=== PATIENT | male | born 1950 | race Caucasian/White ===

== ENCOUNTER → 2022-07-07 10:30 | Outpatient (CLI) | payer OTHER, SELFPAY ==
[2022-07-07 12:26] LABS: COVID19 -Nasal RAPID Negative (Negative)
== END ==
PROVIDERS: PCP Physician Assistant; Referring Provider Orthopaedic Surgery Orthopaedic Surgery of the Spine; Visit Provider Orthopaedic Surgery Orthopaedic Surgery of the Spine
DX: Z20.822 Contact with and (suspected) exposure to COVID-19 (principal)
CPT/HCPCS: 87635; C9803

== ENCOUNTER 2022-07-09 06:24 | Inpatient (IN) | payer OTHER, SELFPAY ==
[2022-06-29 13:50] VITALS: BMI 27.1
[2022-07-09] VITALS (18 sets, daily range): BP systolic 139–180; BP diastolic 77–106; PULSE 82–103; RESP 11–24; TEMP 35.8–36.7; O2SAT 92–98; BMI 27.1
--- NOTE | 2022-07-09 | DI.RAD.S_ITS ---
PROCEDURE: XR LUMBAR SPINE 2-3V INDICATIONS: TLIF L3-4, 4-5 TECHNIQUE: 2 views of the lumbar spine were acquired. COMPARISON: [facility], CT, CT LUMBAR SPINE WITHOUT CONTRAST, 05/24/2022, 16:18. FINDINGS: Bones: Intraoperative fluoroscopic spot images were obtained for lower lumbar posterior fusion hardware placement and interbody spacer placement. IMPRESSION: Intraoperative fluoroscopic spot images were obtained for lower lumbar fusion construct with interbody spacers. Please see operative note for full details. Dictated by: Santana Almaguer M.D. on 07/09/2022 at 11:58 Approved by: Santana Almaguer M.D. on 07/09/2022 at 11:59
[2022-07-09] MEDS: LACTATED RINGERS 1,000 ML 42 ML IV ×2 (06:49→10:41)
[2022-07-09] MEDS: ACETAMINOPHEN 325 MG TABLET 975 MG PO (07:07)
[2022-07-09] MEDS: PREGABALIN 75 MG CAPSULE PO (07:07)
--- NOTE | 2022-07-09 07:41 | PM.PREOP ---
Pre-operative Note COVID-19 COVID-19 status: Negative Result date/Date tested (Pos, Neg/Pending): 07/08/22 Criteria for continued procedure: Expected advancement of disease process, Possibility delay results in more complex future surgery or treatment, Increased loss of function, Continuing or worsening of significant or severe pain, Deterioration of the patient's condition or overall health and Delay expected to result in less-positive ultimate med/surg outcome Interval Note History & Physical reviewed/Exam performed by Physician: Yes Changes to H&P: No
[2022-07-09] MEDS: CEFAZOLIN 2 GM/100 ML PREMIX 100 ML IV ×3 (07:55→21:00)
--- NOTE | 2022-07-09 08:30 | SUR.OPER ---
Prone on spine table, head in foam head support, padded chest and pelvic supports, gel pad at knees, lower legs supported by pillows; nipples, genitalia and toes free of pressure, arms secured on foam padded arm boards at <90 degrees abduction. Tape over blanket at thigh secured to table. Between heels padded with gel.
[2022-07-09] MEDS: INSULIN LISPRO 100 UNIT/ML 3ML VIAL SUBCUT (09:33)
[2022-07-09] MEDS: BUPIVACAINE LIPOSOME 266 MG/20 ML VIAL INJ (11:40)
[2022-07-09] MEDS: BUPIVACAINE 0.25% (PF) 30 ML, EPINEPHrine 0.3 MG INJ (11:40)
--- NOTE | 2022-07-09 11:55 | PM.OP.1 ---
Operative Date/Time/Diagnoses Date of procedure: 07/09/22 Time of procedure: 07:40 Pre-op diagnosis: 1. L3-4, L4-5 spinal stenosis 2. L3-4, L4-5 spondylolisthesis Post-op diagnosis: same Procedure & Clinicians Procedure: 1. L3-4, L4-5 Postero-lateral and posterior interbody fusion 2. L3-4, L4-5 interbody cage placement. 3. L3-4, L4-5 decompressive laminectomy with bilateral facetecomies 4. L3-4, L4-5 Posterior segmental instrumentation 5. Harrison of bone marrow from iliac crest 6. Utilization of microsurgical technique and operating microscope 7. Utilization of robotic assisted navigation Same procedure as scheduled: Yes Indications: Patient has been having chronic back pain and worsening lumbar radiculopathy and symptoms of neurogenic claudication. Patient failed multiple conservative management with worsening pain weakness and numbness in his lower extremity. Patient has been having difficulty performing activity of daily living. After discussing risks benefits of treatment options, patient elected proceed with surgery. Surgeon: Lou Barajas Cake Press Operator: Lucero Forde Click Yes if Unassisted: No Anesthesia Type: General Operative Notes Closure Type: primary Specimen(s): none sent Prosthetic devices, grafts, tissues, transplants, or devices: Globus CREO MIS screws, Rise cages Applied: catheter Estimated Blood Loss (mL): 100 Blood products transfused: none Procedure in detail: Patient was seen in the preoperative area. Risks and benefits of the surgery was discussed with the patient. Informed consent was obtained from the patient and placed in the chart. Surgical site was marked. Patient was taken to the operative room. General anesthesia was administered. Prophylactic antibiotic was given to the patient less than 30 min before the incision was made. Patient was placed into a prone position on the Anselmo table. Patient's back was then prepped and draped in the sterile fashion. Time-out was performed at this time. After patient was prepped and draped, patient's PSIS was palpated and marked bilaterally. Small 1 cm incision was made over the PSIS for placement of the reference probes. Two trocar was placed into the PSIS 1 on each side. The reference probe was attached to the trocar of the reference apparatus. At this time the C-arm imaging was used to confirm AP and lateral of L3, L4-L5 vertebrae and merged the C-arm imaging using the Propers robotic navigation system with the CT of the lumbar spine. After successful merging was completed and confirmed, skin marker was used to gabby out the skin incision using the Propers robotic arm. Bilateral incision was made at this time. Pre templated trajectory was used and guided using the Propers robotic navigation system for bilateral L3 L4, L5 pedicle screw placement. This was done by using the robotic arm to guide the high-speed bur to make a cortical entry point. Next a drill was placed also using the robotic arm and guided using the navigation system drilling partially through bilateral L3, L4, L5 pedicles. Next L3, L4, L5 pedicle screws it was pre templated and measured was placed onto the power wagon driver salesperson and inserted into the pedicles bilaterally. After all 6 screws were placed C-arm imaging was taken of both AP and lateral to confirm the placement. Excellent placement of the screws were confirmed and a matched precisely with the pre planned screw placement using the navigation system. MARs retractor was inserted using [employer] guidence. Globus MARS retractors was placed inside the incision and docked onto the L3, L4 lamina. Using microsurgical technique and operating microscope, a L3, L4 laminectomy and L3-4, L4-5 facetectomy was performed using a Kerrison rongeur. Patient was found have severe lateral recess and neural foramen stenosis which was fully decompressed after the laminectomy facetectomy. More than 75% of the facets were removed during the process of decompression rendering L3-4, L4-5 level grossly unstable and required a fusion procedure at the same time. The disc space at L3-4, L4-5 was identified, and a total diskectomy was performed at L3-4, L4-5 level. The endplates were decorticated using a rasp and shaver. The total diskectomy and decortication was performed at L3-4, L4-5 level in order to to accomplish a L3-4, L4-5 fusion. The local bone from the laminectomy and facetectomy was saved for local bone grafting. After the total diskectomy and decortication was completed, Trifecta bone graft material was combined with local bone that was harvested earlier. At this time, a separate skin is incision was made over the iliac crest. A Jamshidi needle was inserted into the iliac crest through a separate skin incision. 5 cc of bone marrow aspiration was obtained through the separate skin incision using a Jamshidi needle from the iliac crest. The bone marrow aspiration was combined with local bone and the Trifecta bone grafting material. The bone grafting material was placed into the L3-4, L4-5 interbody space along with expandable cages. One cage each was inserted into the L3-4 L4-5 interbody space along with bone graft material. The cage was expanded to its maximum height using the torque limiting screwdriver. The disc preparation as well as the cage insertion were also performed under navigation guidance. After the cage was placed, AP and lateral C-arm imaging was taken to confirm placement of the cage and excellent position was confirmed. Globus MARS retractor was inserted and docked onto the L3-4, L4-5 posterolateral gutter on the right side. Using the power drill, posterior-lateral decortication was performed at L3-4, L4-5 level until bleeding cortical bone was identified. The remaining bone grafting material was placed into the L3-4, L4-5 posterior lateral gutter he order to accomplish posterolateral fusion at the L3-4, L4-5 level. At this time the tulips were attached to the L3, L4-L5 pedicle screw shanks. After measuring the length of the rods, they were inserted into the tulips of the pedicle screws and locked in place using locking caps and torque limiting screwdriver bilaterally. Total 6 caps and 2 titanium rods was used in order to complete the posterior instrumentation construct. After all the hardware was placed, and confirmed with AP and lateral C-arm imaging, the wound was then irrigated with sterile normal saline and packed with Ray-Denzel gauze for 3 min to accomplish hemostasis. After the gauze was removed the deep fascia was closed with #1 Vicryl suture. The subcutaneous layer was closed with 2-0 Vicryl. The skin was closed with skin abdifatah. Patient tolerated the procedure well. There were no complications. Neuro monitoring system was used to monitor patient's neurologic status throughout entire procedure. There was no disturbance of the neural monitoring signals throughout the case. Complications: none Post-operative Condition: stable Disposition: PACU Plan for aftercare: Admit to inpatient hospital
[2022-07-09] MEDS: HYDROMORPHONE 2 MG INJ IV ×4 (12:24→12:58)
[2022-07-09] MEDS: hydrOXYzine 50 MG/ML INJ 25 MG IM (12:26)
--- NOTE | 2022-07-09 12:43 | SUR.PHASEI ---
Marshall Rosenbaum CHAIR POST MACHINE OPERATOR notified of CBG, no new orders.
--- NOTE | 2022-07-09 13:23 | SUR.PHASEI ---
Report called to Erlinda.
--- NOTE | 2022-07-09 13:47 | SUR.PHASEI ---
Patient transferred to the floor with his belongings bag and insulin. Report given to Geeta. VS stable. IV saline locked. Patient moving all extremities independently. Back dressing CDI.
[2022-07-09] MEDS: SODIUM CHLORIDE 0.9% 1,000 ML 100 ML IV (14:30)
[2022-07-09] MEDS: OXYCODONE IR 5 MG TABLET 10 MG PO ×2 (14:30→19:30)
--- NOTE | 2022-07-09 15:30 | PT.IIE ---
Current Diagnoses Spondylolisthesis, lumbar region (07/09/22) Spinal stenosis, lumbar region with neurogenic claudication (07/09/22) Surgery Performed Operation Date: 07/09/22 07:45 Actual Procedures p L3-4, L4-5 TLIF w. posterior instrumentation-Robot - Lou Barajas MD Surgical History (Last Updated 06/29/22 @ 14:24 by Glory Sharif, RN) H/O vasectomy History of lumbar spinal fusion (~1975) History of lumbar surgery (~1981) History of surgery (~1984) Medical History (Last Updated 06/29/22 @ 14:15 by Glory Sharif, RN) Cyst of left kidney Diabetes Easy bruisability Fatty liver HLD (hyperlipidemia) HTN (hypertension) Sciatica Spinal stenosis Physical Therapy Inpatient Evaluation/Re-Eval M1 PT/OT-IP Prior Functional Status Start: 07/09/22 16:20 Freq: NEEDED Status: Active Protocol: Document 07/09/22 15:30 AB (Rec: 07/09/22 16:31 AB [email or web address]) Medical Review Prior Functional Status Medical History Reviewed Yes Communication able to make needs known Mobility and Gait pt stated that he is independent with all mobilities and ambulation without AD Social History Household Members spouse Living Arrangements House Number of Floors (Floors) One Floor Number of Stairs To Enter/Railing? 1 step to enter has a sunken living room and has one step to go down to Home Environment Standard Height Toilet,Walk in Shower Home Equipment Four Wheel Walker M2 PT-IP Current Condition Start: 07/09/22 16:20 Freq: NEEDED Status: Active Protocol: Document 07/09/22 15:30 AB (Rec: 07/09/22 16:31 AB [email or web address]) Physical Therapy Current Condition Current Condition Evaluation Date 07/09/22 Treatment Diagnosis s/p L3-4, L4-5 TLIF; difficulty in walking Onset Date 07/09/22 M3 PT-IP Subjective Start: 07/09/22 16:20 Freq: NEEDED Status: Active Protocol: Document 07/09/22 15:30 AB (Rec: 07/09/22 16:31 AB [email or web address]) Subjective Physical Therapy Visit Type Type Initial Evaluation Visit Start Time 15:30 Visit Stop Time 16:12 Total Visit Minutes 42 Number of CLINICAL MATERIAL HANDLER Visits 0 Physical Therapy Visit Comments Patient Comments agreeable to do PT Therapy Pain Assessment Pain When Pain Assessed At Rest Pain Present Pain Present Pain Reported Location low back Intensity 9 Scale Used Numeric (0 - 10) Pain Behaviors Facial Grimacing,Guarding, Moaning,Wincing Pain Management Techniques Distraction,Modification of Treatment,Re-positioning, Timing of Activity with Medications M4 PT-IP Mobility and Gait Start: 07/09/22 16:20 Freq: NEEDED Status: Active Protocol: Document 07/09/22 15:30 AB (Rec: 07/09/22 16:31 AB [id number]) PT-Bed Mobility Assessment Rolling Type of Rolling Log Rolling Level of Assist Minimal Assistance Supine to Sit Supine to Sit Minimal Assistance,Bedrails Sit to Supine Sit to Supine Moderate Assistance,1 Person Assistance PT-Transfer Assessment Sit to and From Stand Sit to and from Stand Minimal Assistance,Moderate Assistance,1 Person Assistance ,Use of Upper Extremities Equipment Transfer Assistive Device Gait Belt,Front Wheeled Walker Orthotic/Prosthetic Devices or Brace: No Comments Mobility Comments spouse in room with pt. educated pt and spouse regarding back precautions and log roll bed mobility. BP: 159/89. O2 sat at RA 98%. pt completed log roll supine to sit min A and cues. able to sit on EOB SBA. completed sit to stand min A to mod A and cues and use of FWW for support. c/o increase back pain of 9/10 with BLE shaking. instructed pt to take steps towards HOB min to mod A using FWW and sat back on EOB mod A for controlled descent. completed log roll back to bed mod A and max cues. positioned pt in bed. call light and table placed within reach. caregiver training set up for tomorrow with spouse at 930 am . Gait Assessment Gait Gait Assistance Required: Minimum Assistance,Moderate Assistance,1 Person Assist Distance (Feet) 2 Able to Maintain Weight Bearing Status Yes During Gait Assistive Devices Assistive Device Gait Belt,Front Wheeled Walker Orthotic/Prosthetic Devices or Brace: No Factors Limiting Gait Function Factors Limiting Gait Function Decreased Activity Tolerance, Decreased Strength,Limited Range of Motion,Pain,Poor Balance,Poor Safety Awareness Comments Gait Comments side stepping toward HOB PT-Balance Assessment Sitting Balance and Reactions Static Sitting Balance Ability Normal Dynamic Sitting Balance Ability Good Standing Balance and Reactions Static Standing Balance Ability Fair Dynamic Standing Balance Ability Fair Device Used FWW M5 PT-IP Objective Assessments Start: 07/09/22 16:20 Freq: NEEDED Status: Active Protocol: Document 07/09/22 15:30 AB (Rec: 07/09/22 16:31 [id number]) Orientation Orientation/Cognition Level of Alertness Alert Orientation Name,Place,Situation Language Function Ability No Deficits Noted Safety Awareness Decreased Safety Awareness Memory Description Short Term Impaired Gross Range of Motion Lower Extremity ROM Assessment Within Functional Limits Strength Lower Extremity Strength Assessment Within Functional Limits Sensation Assessment Sensation Gross Sensation Right LE Impaired,Left LE Impaired Sensation Description Numbness Comments Sensation Comments c/o numbness on ball of his feet and stated these are chronic Muscle Tone Muscle Tone WNL Yes M6 PT-IP Treatment Start: 07/09/22 16:20 Freq: NEEDED Status: Active Protocol: Document 07/09/22 15:30 AB (Rec: 07/09/22 16:31 [email or web address]) Physical Therapy Treatment Education Education Provided Precautions,Weight Bearing Status,Post-Op Packet,Safety M7 PT-IP Assessment and Plan Start: 07/09/22 16:20 Freq: NEEDED Status: Active Protocol: Document 07/09/22 15:30 AB (Rec: 07/09/22 16:31 AB [email or web address]) PT Summary Assessment and Plan Potential Rehabilitation Potential Fair Status of Condition at Evaluation Evolving Summary Impairments Pain,ROM,Strength,Balance, Coordination,Sensation,Tone, Cognition,Bed Mobility, Transfers,Gait,Activity Tolerance Assessment Summary pt s/p L3-4, L4-5 TLIF and just had surgery this morning. Pt has c/o 9/10 LBP affecting mobility and activity tolerance. pt needing min to mod A and unable to ambulate much. will continue to assess progress. caregiver training set up for tomorrow with spouse at 930am. pt needs to complete stair climbing training as well prior to d/c home. Goals Bed Mobility Goal Independent Transfer Goal Independent,Front Wheeled Walker Gait Goal Independent,Front Wheel Walker Gait Distance 200 Other Goals up/down 1 step using FWW SBA Days to Meet Goals 5 Frequency of Treatment Frequency Of Treatment Twice a Day Treatment Plan Physical Therapy Treatment Plan Bed Mobility Training,Transfer Training,Gait Training, Therapeutic Exercise,Balance Retraining,Post Op Education, Discharge Planning,Hot or Cold Pack,Neuromuscular Re-ed, Coordination Retraining,Manual Therapy Precautions Lumbar Precautions Log Roll,No Twisting,Limit Bending,Lifting Restriction of 10 lbs,Gait Belt above Incisional Area Recommendations To Nursing Amount of Assist Needed 1 Person Assist Discharge Recommendations PT Discharge Recommendations Home with Assistance Equipment Needed for Home Before FWW Discharge Transportation Needs at Discharge Private Vehicle,Wheelchair/ Cabulance
[2022-07-09] MEDS: HYDROMORPHONE 0.5 MG INJ IV ×3 (17:21→21:46)
--- NOTE | 2022-07-09 18:49 | PC.NURSE ---
Patient had a tlif and dressing to lower back is cdi. He has a shine that is putting out yellow urine. He is on NS at 100cc/hr. Patient given 10mg of po oxycodone and this was not helpful to patient. He got up wit pt, also tried to have a bowel movement and went back to bed. Patient complained of 10/10 pain and was given dilaudid 0.5mg iv and this was helpful to patient, he did get nauseated but this has resolved after cool cloth placed on face.
[2022-07-09] MEDS: ONDANSETRON 4 MG/2 ML INJ IV (19:29)
[2022-07-09] MEDS: SENNOSIDES 8.6 MG TABLET 17.2 MG PO (20:58)
[2022-07-09] MEDS: DOCUSATE 100 MG CAPSULE PO (20:58)
[2022-07-10] VITALS: BP 151/94; PULSE 94; RESP 18; TEMP 37.6; O2SAT 94
[2022-07-10] MEDS: HYDROCODONE/ACET 5/325 TABLET 1.5 TAB PO (00:20)
[2022-07-10] MEDS: hydrOXYzine pamoate 25 MG CAPSULE PO (00:20)
[2022-07-10] MEDS: HYDROMORPHONE 0.5 MG INJ IV ×3 (02:08→12:36)
[2022-07-10] MEDS: SODIUM CHLORIDE 0.9% 1,000 ML 100 ML IV (02:10)
[2022-07-10] MEDS: OXYCODONE IR 5 MG TABLET 10 MG PO ×3 (05:53→21:26)
[2022-07-10 06:39] LABS: Hematocrit 41.4 % (41-53); Hemoglobin 14.7 g/dL (13.5-17.5)
[2022-07-10 08:34] VITALS: BP 152/77; PULSE 86; RESP 18; TEMP 36.6; O2SAT 97
--- NOTE | 2022-07-10 08:46 | PM.PNPO.1 ---
Subjective Subjective Date Patient Seen: 07/10/22 Time Patient Seen: 08:46 Interval history: Patient is complaining of moderate to severe low back pain this morning. He is not worked with physical therapy or occupational therapy yet. He denies any new numbness or tingling down his legs. Exam Vital Signs (past 8 hours): - 07/10/22 08:34 Temperature 97.8 F Pulse Rate 86 Respiratory Rate 18 Blood Pressure 152/77 H Pulse Oximetry 97 Oxygen Flow Rate 0 Oxygen Delivery Method Room Air Oxygen Flow Rate 0 Narrative Exam Narrative: Pleasant 71-year-old male, sitting at the side of his bed, mild distress due to pain and position changes. Dressing is clean, dry, intact, no surrounding erythema or induration. Bilateral lower extremity: Motor functions are grossly intact, sensation is grossly intact to light touch, calves are soft and nontender to palpation. Objective Labs Result Diagrams: 07/10/22 05:44 Labs: Laboratory Results - last 24 hr 07/10/22 05:44 Hgb 14.7 Hct 41.4 PFSH Medical History Cyst of left kidney Diabetes Easy bruisability Fatty liver HLD (hyperlipidemia) HTN (hypertension) Sciatica Spinal stenosis Surgical History H/O vasectomy History of lumbar spinal fusion (~1975) History of lumbar surgery (~1981) History of surgery (~1984) Social History household members: spouse Smoking Status: Former smoker alcohol intake: current Assessment & Plan Post-op Postoperative Procedures: Procedures Operation Date: 07/09/22 07:45 Actual Procedure Side Surgeon p L3-4, L4-5 TLIF w. posterior instrumentation-Robot Lou Barajas MD Postoperative day: 1 Postoperative status: marginal pain control Postoperative status narrative: -stable status post L3-4, L4-5 TLIF Postoperative plan narrative: -mobilize with PT/OT. Weightbearing as tolerated with front wheel walker or cane. Limit bending, lifting, twisting x6 weeks -continue with multimodal pain management. We will change him to p.o. Dilaudid for better pain control. Encouraged around the clock Tylenol for baseline pain relief -remove urinary catheter once mobilizing well -DC home likely in 1-2 days Quality VTE Deep Vein Thrombosis/Pulmonary Embolism Present on Admission: No
[2022-07-10] MEDS: HYDROMORPHONE 2 MG TABLET PO ×3 (09:26→19:45)
[2022-07-10] MEDS: DOCUSATE 100 MG CAPSULE PO ×2 (09:27→19:45)
[2022-07-10] MEDS: CHOLECALCIFEROL (VITAMIN D3) 5,000 UNIT TABLET 5000 UNIT PO (09:27)
[2022-07-10 09:28] VITALS: BP 147/89; PULSE 89
[2022-07-10] MEDS: hydroCHLOROthiazide 25 MG TABLET PO (09:28)
[2022-07-10] MEDS: lisinopriL 20 MG TABLET 40 MG PO (09:28)
[2022-07-10] MEDS: MAGNESIUM OXIDE 400 MG TABLET PO (09:28)
[2022-07-10] MEDS: EZETIMIBE 10 MG TABLET PO (09:40)
[2022-07-10] MEDS: ASCORBIC ACID 500 MG TABLET PO (09:41)
--- NOTE | 2022-07-10 10:33 | PT.IPTN ---
Current Diagnoses Spondylolisthesis, lumbar region (07/09/22) Spinal stenosis, lumbar region with neurogenic claudication (07/09/22) Surgery Performed Operation Date: 07/09/22 07:45 Actual Procedures p L3-4, L4-5 TLIF w. posterior instrumentation-Robot - Lou Barajas MD Physical Therapy Treatment Note M2 PT-IP Current Condition Start: 07/09/22 16:20 Freq: NEEDED Status: Active Protocol: Document 07/09/22 15:30 AB (Rec: 07/09/22 16:31 AB [email or web address]) Physical Therapy Current Condition Current Condition Evaluation Date 07/09/22 Treatment Diagnosis s/p L3-4, L4-5 TLIF; difficulty in walking Onset Date 07/09/22 M3 PT-IP Subjective Start: 07/09/22 16:20 Freq: NEEDED Status: Active Protocol: Document 07/10/22 10:33 AB (Rec: 07/10/22 12:07 AB [email or web address]) Subjective Physical Therapy Visit Type Type Treatment Note Visit Start Time 10:33 Visit Stop Time 11:01 Total Visit Minutes 28 Number of SERVICE AGENT Visits 0 Physical Therapy Visit Comments Patient Comments checked on pt 9am for caregiver training but c/o 9/ 10 pain and requested for PT to come back. checked back after ~ 1 hour and pt agreed. spouse in room. Therapy Pain Assessment Pain When Pain Assessed At Rest Pain Present Pain Present Pain Reported Location low back Intensity 8 Scale Used Numeric (0 - 10) Pain Behaviors Facial Grimacing,Guarding, Wincing Pain Management Techniques Apply Cold,Distraction, Modification of Treatment,Re- positioning,Timing of Activity with Medications M4 PT-IP Mobility and Gait Start: 07/09/22 16:20 Freq: NEEDED Status: Active Protocol: Document 07/10/22 10:33 AB (Rec: 07/10/22 12:07 AB [email or web address]) PT-Bed Mobility Assessment Rolling Type of Rolling Log Rolling Level of Assist Standby Assistance Supine to Sit Supine to Sit Standby Assistance Sit to Supine Sit to Supine Standby Assistance PT-Transfer Assessment Sit to and From Stand Sit to and from Stand Minimal Assistance,1 Person Assistance,Use of Upper Extremities Equipment Transfer Assistive Device Gait Belt Orthotic/Prosthetic Devices or Brace: No Transfers Transfer Destination Chair Transfer Technique ambulated Transfer Ability Level of Assist Contact Guard Assistance, Minimal Assistance,1 Person Assistance,Use of Upper Extremities Comments Mobility Comments reviewed back precautions with pt and pt requiring cues to recall. c/o 8/10 LBP. spouse in room for training. pt completed supine to sit log roll SBA. presnts with difficulty completing task with 2 attempts to complete. pt sat on EOB SBA. educated spouse on safety belt use and how to assist pt. spouse was able to put safety belt on pt, assisted pt with sit to stand and ambulated pt in room using FWW. pt sat on the chair but requested to go back to bed. completed sit to stand with spouse assisting min A and step transfer to bed CGA to min A using FWW. pt completed sit to supine SBA. positioned pt in bed. call light and table placed within reach. Gait Assessment Gait Gait Assistance Required: Contact Guard Assist,Minimum Assistance Distance (Feet) 40 Able to Maintain Weight Bearing Status Yes During Gait Assistive Devices Assistive Device Gait Belt,Front Wheeled Walker Orthotic/Prosthetic Devices or Brace: No Gait Deviations General Gait Pattern Antalgic,Decreased Stride Length,Decreased Feet Clearance,Step-to Gait Factors Limiting Gait Function Factors Limiting Gait Function Decreased Activity Tolerance, Decreased Strength,Limited Range of Motion,Pain,Poor Balance,Poor Safety Awareness M5 PT-IP Objective Assessments Start: 07/09/22 16:20 Freq: NEEDED Status: Active Protocol: Document 07/09/22 15:30 AB (Rec: 07/09/22 16:31 AB [email or web address]) Orientation Orientation/Cognition Level of Alertness Alert Orientation Name,Place,Situation Language Function Ability No Deficits Noted Safety Awareness Decreased Safety Awareness Memory Description Short Term Impaired Gross Range of Motion Lower Extremity ROM Assessment Within Functional Limits Strength Lower Extremity Strength Assessment Within Functional Limits Sensation Assessment Sensation Gross Sensation Right LE Impaired,Left LE Impaired Sensation Description Numbness Comments Sensation Comments c/o numbness on ball of his feet and stated these are chronic Muscle Tone Muscle Tone WNL Yes M6 PT-IP Treatment Start: 07/09/22 16:20 Freq: NEEDED Status: Active Protocol: Document 07/10/22 10:33 AB (Rec: 07/10/22 12:07 AB [email or web address]) Physical Therapy Treatment Education Education Provided Precautions,Safety M7 PT-IP Assessment and Plan Start: 07/09/22 16:20 Freq: NEEDED Status: Active Protocol: Document 07/10/22 10:33 AB (Rec: 07/10/22 12:07 [id number]) PT Summary Assessment and Plan Potential Rehabilitation Potential Fair Summary Impairments Pain,ROM,Strength,Balance, Coordination,Sensation,Tone, Cognition,Bed Mobility, Transfers,Gait,Activity Tolerance Progress Towards Goals Slow Progress due to Pain Assessment Summary pt requiring CGA to min A with mobility using FWW. pt c/o increase LBP affecting function and activity tolerance. caregiver training initiated but further training needed for stair climbing. will attempt again this afternoon. pt plans to go home and spouse will assist pt at home. Goals Bed Mobility Goal Independent Transfer Goal Independent,Front Wheeled Walker Gait Goal Independent,Front Wheel Walker Gait Distance 200 Other Goals up/down 1 step using FWW SBA Days to Meet Goals 5 Frequency of Treatment Frequency Of Treatment Twice a Day Treatment Plan Physical Therapy Treatment Plan Bed Mobility Training,Transfer Training,Gait Training, Therapeutic Exercise,Balance Retraining,Post Op Education, Discharge Planning,Hot or Cold Pack,Neuromuscular Re-ed, Coordination Retraining,Manual Therapy Precautions Lumbar Precautions Log Roll,No Twisting,Limit Bending,Lifting Restriction of 10 lbs,Gait Belt above Incisional Area Recommendations To Nursing Amount of Assist Needed 1 Person Assist Discharge Recommendations PT Discharge Recommendations Home with Assistance Equipment Needed for Home Before FWW Discharge Transportation Needs at Discharge Private Vehicle,Wheelchair/ Cabulance
--- NOTE | 2022-07-10 11:25 | PC.NURSE ---
Addendum entered by Brian Lugo 07/10/22 18:41: *post-op day 1 Original Note: Pt is post-op day 2 from a TLIF. BP remains elevated. BG was 167 @ 0823. Pt stated px located in his lower back was at a 10/10. After oral dilaudid, px went down to an 8/10. Alternating cold and hot compress for additional comfort measures. Significant other in the room, pt resting comfortably.
[2022-07-10 12:00] VITALS: BP 138/74; PULSE 94; RESP 18; TEMP 36.6; O2SAT 92
--- NOTE | 2022-07-10 14:15 | CM.DANOTE ---
Initial Discharge Assessment Note: Case reviewed, met with patient and spouse. Introduced self and role. Payer: [facility] and self pay PCP: Noemi Magallanes 71 year old admitted yesterday for planned TFLIF. He is experiencing moderate to severe pain and was medicated. He has worked with PT earlier. He is now resting in bed with in room. Patient and supportive spouse live in [place] and enjoy their horses and property. Their son lives close by and is an EMT. Plan: When medically cleared, patient will return home with spouse who will provide transport. SEJ Discharge Planning/Care Management Advanced directive, confirm from FAMILY Start: 07/09/22 16:28 Freq: Q24H Status: Active Protocol: Document 07/09/22 16:28 (Rec: 07/09/22 21:57 [id number]) Advance Directive, confirm on record Time 21:00 Person contacted patient Copy received No CM Discharge Assessment Start: 07/10/22 14:13 Freq: Status: Active Protocol: Document 07/10/22 14:14 (Rec: 07/10/22 14:15 [id number]) Discharge Planning Assessment Assigned Rating Specialist Rocio Shaffer RN/DCP Advance Directives? Yes Advance Directives on File Yes History Provided By Patient,Significant Other Prior Living Arrangements House Household Members spouse Type of transporation used prior to Drives own vehicle admit Independent with ADL's Yes Is patient alert and oriented? Yes Needs Assistance With Home Chores / Shopping Caregiver for Another No Barriers to Discharge No Discharge Plan Home Referrals Initiated None needed Whiteboard Updated in Patient Room with Yes name and ext. # of Rating Specialist Review Status In Process Next Review Type Continued Stay Review Pre-Anesthesia Assessment Start: 06/29/22 13:49 Freq: Status: Active Protocol: Document 06/29/22 13:50 CAB (Rec: 06/29/22 14:33 CAB [id number]) Pre-Anesthesia Assessment Preferred Name Don Comment COVID screen @ 07/07/22 Primary Care Provider Noemi Magallanes Seen Specialist in Last 12 Months Yes Specialist Seen Orthopedist Primary Language Wolof [employer] Required No Height 175.26 cm Weight 83.461 kg Body Mass Index (BMI) 27.1 Hearing Ability Normal Visual Assist Glasses Dentition Type Teeth, Natural Present,Teeth, Missing Barriers to Learning None Hx Anesthesia Reactions No Hx Family Anesthesia Reaction No Hx Malignant Hyperthermia No Hx Blood Transfusions Yes Hx Blood Transfusion Reaction No Anesthesia Review Requested Yes: PAC courtesy re: abnormal pre-op ECG alcohol intake current alcohol intake frequency 0-2 drinks per day Smoking Status Former smoker how long ago did patient quit smoking Quit in the 70's Substance Use Type marijuana Comment Advised not to smoke marijuana 24 hours prior to surgery Pain Present Pain Reported Musculoskeletal Symptoms Abnormal Gait,Back Pain, Difficulty Walking,Joint Pain History of Falling (Recent or History of No ) Patient is completely paralyzed or No completely immobile Mental Status Oriented to own ability Is patient on oxygen? No Does patient have DEY/SOB No Hx Sleep Apnea No Currently Taking a Beta Tara No Hx Chest Pain No Hx SOB No Hx Syncope or Dizziness No Anti-Coagulant Therapy No Has a Gis Specialist No Cardiac Testing No Hx Pacemaker/ICD No Pacemaker Rep Required? No Cardiac Clearance Received Not Applicable Diet Type At Home Regular dysphagia No Urinary Catheter Present No Hx Urinary Self Catheterization No Diabetes Yes: Pt checks blood sugar 3- 4x/week Hx Drug Resistant Organism No Presence of External or Internal Medical No Devices Have you had any close contact with No someone diagnosed with COVID-19? Received a COVID vaccine? Yes Received all doses? No Marital Status Lives With spouse Prior Living Arrangements House Number of Floors (Floors) One Floor Support System Spouse Does the Patient Have Assistance After Yes Surgery Patient Discharge Plan Description Return Home Comment Pt advised overnight length of stay per surgeon Feels Safe in Current Environment Yes Been Physically Hurt or Threatened By a No Person in Current Environment Do you have thoughts of harming yourself None or others? Are you currently considering suicide? No Do you have a plan to hurt yourself or No Plan others? Do You Have Any Spiritual Beliefs That No May Affect Your HC Choices? Do You Have Any Cultural Practices That No May Affect Your HC Choices? Comment Jew Who Can We Speak to About Patient's Care Family, friends Identifying Code for Release of Patient Declines to issue Information Health Care Proxy/Next of Kin Shawna () Health Care Proxy Emergency Contact Name Shawna () Emergency Contact Advance Directives? Yes Advance Directives on File No Requested Patient Bring Advanced Yes Directives DOS Power of Clinical Orthoptist Yes Power of Clinical Orthoptist Name Shawna () Julio Cesar (son) Power of Clinical Orthoptist Phone Number Shawna: [phone] Julio Cesar: [phone] PAC Instructions Diabetes instructions,Durable medical equipment,Medications to take/avoid,Nasal antibiotic ,No ETOH/petroleum product on skin DOS,NPO,Post-op transportation,Pre-surgical wash,Sensory aids,Sturdy shoes /comfortable clothes,Do not bring valuables and remove jewelry
--- NOTE | 2022-07-10 14:16 | PT.IPTN ---
Current Diagnoses Spondylolisthesis, lumbar region (07/09/22) Spinal stenosis, lumbar region with neurogenic claudication (07/09/22) Surgery Performed Operation Date: 07/09/22 07:45 Actual Procedures p L3-4, L4-5 TLIF w. posterior instrumentation-Robot - Lou Barajas MD Physical Therapy Treatment Note M2 PT-IP Current Condition Start: 07/09/22 16:20 Freq: NEEDED Status: Active Protocol: Document 07/09/22 15:30 AB (Rec: 07/09/22 16:31 AB [email or web address]) Physical Therapy Current Condition Current Condition Evaluation Date 07/09/22 Treatment Diagnosis s/p L3-4, L4-5 TLIF; difficulty in walking Onset Date 07/09/22 M3 PT-IP Subjective Start: 07/09/22 16:20 Freq: NEEDED Status: Active Protocol: Document 07/10/22 14:16 AB (Rec: 07/10/22 14:50 AB [email or web address]) Subjective Physical Therapy Visit Type Type Treatment Note Visit Start Time 14:16 Visit Stop Time 14:40 Total Visit Minutes 24 Number of COMPLIANCE REVIEW SPECIALIST Visits 0 Physical Therapy Visit Comments Patient Comments initially refusing but then agreed M4 PT-IP Mobility and Gait Start: 07/09/22 16:20 Freq: NEEDED Status: Active Protocol: Document 07/10/22 14:16 AB (Rec: 07/10/22 14:50 AB [email or web address]) PT-Bed Mobility Assessment Supine to Sit Supine to Sit Standby Assistance PT-Transfer Assessment Sit to and From Stand Sit to and from Stand Contact Guard Assistance,1 Person Assistance,Use of Upper Extremities Equipment Transfer Assistive Device Gait Belt,Front Wheeled Walker Orthotic/Prosthetic Devices or Brace: No Comments Mobility Comments pt completed supine to sit SBA . spouse was able to put safety belt on and assisted pt with sit to stand and ambulation using FWW CGA. pt ambulated to the platform steps using FWW CGA. PT initially cued pt and spouse on how to complete but completed another set and able to complete without PT cueing . pt has a 4WW at home. ambulated using 4WW CGA with spouse assisting. completed up /down platform step again and instructed on how to maneuver 4WW up platform step and instructed spouse on how to complete. pt completed CGA and assist with 4WW. pt ambulated back to his room and sat on EOB. wanted to sit on EOB for how. left with spouse and call light within reach. Gait Assessment Gait Gait Assistance Required: Contact Guard Assist,1 Person Assist Distance (Feet) 20 Able to Maintain Weight Bearing Status Yes During Gait Assistive Devices Assistive Device Gait Belt,Front Wheeled Walker ,4 Wheeled Walker Orthotic/Prosthetic Devices or Brace: Yes Gait Deviations General Gait Pattern Decreased Stride Length, Decreased Feet Clearance Factors Limiting Gait Function Factors Limiting Gait Function Decreased Activity Tolerance, Decreased Strength,Limited Range of Motion,Pain,Poor Balance,Poor Safety Awareness Stair Climbing Assessment Evaluation Level of Assist On Stairs Contact Guard Assistance,1 Person Assistance Devices Stair Climbing Assistive Devices Front Wheel Walker,Four Wheel Walker Technique/Endurance Stair Climbing Direction Ascend and Descend Stair Climbing Technique Step to Step Number of Steps Climbed 1 Comments Stair Climbing Comments 3 M5 PT-IP Objective Assessments Start: 07/09/22 16:20 Freq: NEEDED Status: Active Protocol: Document 07/09/22 15:30 AB (Rec: 07/09/22 16:31 [facility] Orientation Orientation/Cognition Level of Alertness Alert Orientation Name,Place,Situation Language Function Ability No Deficits Noted Safety Awareness Decreased Safety Awareness Memory Description Short Term Impaired Gross Range of Motion Lower Extremity ROM Assessment Within Functional Limits Strength Lower Extremity Strength Assessment Within Functional Limits Sensation Assessment Sensation Gross Sensation Right LE Impaired,Left LE Impaired Sensation Description Numbness Comments Sensation Comments c/o numbness on ball of his feet and stated these are chronic Muscle Tone Muscle Tone WNL Yes M6 PT-IP Treatment Start: 07/09/22 16:20 Freq: NEEDED Status: Active Protocol: Document 07/10/22 14:16 AB (Rec: 07/10/22 14:50 AB [email or web address]) Physical Therapy Treatment Education Education Provided Precautions,Safety M7 PT-IP Assessment and Plan Start: 07/09/22 16:20 Freq: NEEDED Status: Active Protocol: Document 07/10/22 14:16 AB (Rec: 07/10/22 14:50 AB [email or web address]) PT Summary Assessment and Plan Potential Rehabilitation Potential Fair Summary Impairments Pain,ROM,Strength,Balance, Coordination,Sensation,Tone, Cognition,Bed Mobility, Transfers,Gait,Activity Tolerance Progress Towards Goals Slow Progress due to Pain Assessment Summary caregiver training conducted again and spouse was able to assist pt safely. pt plans to go home and spouse to assist. Goals Bed Mobility Goal Independent Transfer Goal Independent,Front Wheeled Walker Gait Goal Independent,Front Wheel Walker Gait Distance 200 Other Goals up/down 1 step using FWW SBA Days to Meet Goals 5 Frequency of Treatment Frequency Of Treatment Twice a Day Treatment Plan Physical Therapy Treatment Plan Bed Mobility Training,Transfer Training,Gait Training, Therapeutic Exercise,Balance Retraining,Post Op Education, Discharge Planning,Hot or Cold Pack,Neuromuscular Re-ed, Coordination Retraining,Manual Therapy Precautions Lumbar Precautions Log Roll,No Twisting,Limit Bending,Lifting Restriction of 10 lbs,Gait Belt above Incisional Area Recommendations To Nursing Amount of Assist Needed 1 Person Assist Discharge Recommendations PT Discharge Recommendations Home with Assistance Transportation Needs at Discharge Private Vehicle,Wheelchair/ Cabulance
--- NOTE | 2022-07-10 18:58 | PC.NURSE ---
Assess- 0900- Patient is alert and oriented x4, he has been working with physical therapy. Dilaudid po given to patient and not helpful. We started him back on oxycodone and he states that this may work a bit better. Patient given iv dilaudid and helpful to patient but only for about an hour. He states that it is helpful and he sleeps. Alonso taken out around 1700, and patient voided 350cc in the urinal. Dressing to back remains cdi. Patient is lying on his l.side.
[2022-07-10] MEDS: SENNOSIDES 8.6 MG TABLET 17.2 MG PO (19:45)
[2022-07-10 21:22] VITALS: BP 134/69; PULSE 93; RESP 18; TEMP 36.6; O2SAT 93
[2022-07-11] MEDS: HYDROMORPHONE 2 MG TABLET PO ×3 (00:27→08:09)
[2022-07-11] MEDS: HYDROMORPHONE 0.5 MG INJ IV ×2 (01:18→06:38)
[2022-07-11 04:19] VITALS: BP 128/75; PULSE 84; RESP 16; TEMP 37.3; O2SAT 94
[2022-07-11 07:53] VITALS: BP 128/70; PULSE 94; RESP 16; TEMP 36.4; O2SAT 96
[2022-07-11] MEDS: DOCUSATE 100 MG CAPSULE PO (08:09)
[2022-07-11] MEDS: EZETIMIBE 10 MG TABLET PO (08:09)
[2022-07-11] MEDS: CHOLECALCIFEROL (VITAMIN D3) 5,000 UNIT TABLET 5000 UNIT PO (08:09)
[2022-07-11] MEDS: MAGNESIUM OXIDE 400 MG TABLET PO (08:09)
[2022-07-11] MEDS: lisinopriL 20 MG TABLET 40 MG PO (08:09)
[2022-07-11] MEDS: hydroCHLOROthiazide 25 MG TABLET PO (08:09)
[2022-07-11] MEDS: ASCORBIC ACID 500 MG TABLET PO (08:10)
--- NOTE | 2022-07-11 09:08 | PT.IPTN ---
Current Diagnoses Spondylolisthesis, lumbar region (07/09/22) Spinal stenosis, lumbar region with neurogenic claudication (07/09/22) Surgery Performed Operation Date: 07/09/22 07:45 Actual Procedures p L3-4, L4-5 TLIF w. posterior instrumentation-Robot - Lou Barajas MD Physical Therapy Treatment Note M2 PT-IP Current Condition Start: 07/09/22 16:20 Freq: NEEDED Status: Active Protocol: Document 07/09/22 15:30 AB (Rec: 07/09/22 16:31 AB [id number]) Physical Therapy Current Condition Current Condition Evaluation Date 07/09/22 Treatment Diagnosis s/p L3-4, L4-5 TLIF; difficulty in walking Onset Date 07/09/22 M3 PT-IP Subjective Start: 07/09/22 16:20 Freq: NEEDED Status: Active Protocol: Document 07/11/22 09:01 BC (Rec: 07/11/22 09:08 BC [id number]) Subjective Physical Therapy Visit Type Type Treatment Note Visit Start Time 08:35 Visit Stop Time 09:00 Total Visit Minutes 25 Physical Therapy Visit Comments Patient Comments Pt states he feels better walking vs sitting. He has a few questions regarding mobility at discharge. He reports readiness to discharge home. Therapy Pain Assessment Pain When Pain Assessed After Treatment Pain Present Pain Present Pain Reported Location low back Intensity 9 Scale Used Numeric (0 - 10) Pain Management Techniques Re-positioning,Timing of Activity with Medications M4 PT-IP Mobility and Gait Start: 07/09/22 16:20 Freq: NEEDED Status: Active Protocol: Document 07/11/22 09:01 BC (Rec: 07/11/22 09:08 [id number]) PT-Transfer Assessment Sit to and From Stand Sit to and from Stand Independent Equipment Transfer Assistive Device Gait Belt,Front Wheeled Walker Transfers Transfer Destination Chair Transfer Technique Stand Pivot Transfer Ability Level of Assist Independent Comments Mobility Comments Transfers from recliner with FWW and modif Ind. No physical support, good technique. Gait Assessment Gait Gait Assistance Required: Independent Distance (Feet) 200 Assistive Devices Assistive Device Gait Belt,Front Wheeled Walker Gait Deviations General Gait Pattern Decreased Stride Length Factors Limiting Gait Function Factors Limiting Gait Function Limited Range of Motion,Pain Comments Gait Comments Pt reporting walking feels good. Able to ambulate with equal but short stride length 200' without LOB or need of physical intervention from PT. Stair Climbing Assessment Comments Stair Climbing Comments Pt declined need to revisit stair training at this time. He reviewed stairs with PT and yesterday with CGA. PT-Balance Assessment Sitting Balance and Reactions Static Sitting Balance Ability Normal Dynamic Sitting Balance Ability Normal Standing Balance and Reactions Static Standing Balance Ability Good Dynamic Standing Balance Ability Good Device Used FWW M5 PT-IP Objective Assessments Start: 07/09/22 16:20 Freq: NEEDED Status: Active Protocol: Document 07/09/22 15:30 AB (Rec: 07/09/22 16:31 AB [email or web address]) Orientation Orientation/Cognition Level of Alertness Alert Orientation Name,Place,Situation Language Function Ability No Deficits Noted Safety Awareness Decreased Safety Awareness Memory Description Short Term Impaired Gross Range of Motion Lower Extremity ROM Assessment Within Functional Limits Strength Lower Extremity Strength Assessment Within Functional Limits Sensation Assessment Sensation Gross Sensation Right LE Impaired,Left LE Impaired Sensation Description Numbness Comments Sensation Comments c/o numbness on ball of his feet and stated these are chronic Muscle Tone Muscle Tone WNL Yes M6 PT-IP Treatment Start: 07/09/22 16:20 Freq: NEEDED Status: Active Protocol: Document 07/11/22 09:01 (Rec: 07/11/22 09:08 [id number]) Physical Therapy Treatment Education Education Provided Precautions,Safety Other Treatments Other Treatment Performed Answered Pt questions regarding activity at home. Education on spinal precautions and increased risk at home as pain improves. Pt verbalizes he has been through 3 spinal surgeries and understands the benefit of following spinal precautions. He will ambulate at home with walker for exercise. We discussed grading ambulation distance and slowly increasing as he tolerates. Reviewed verbally log roll technique. M7 PT-IP Assessment and Plan Start: 07/09/22 16:20 Freq: NEEDED Status: Active Protocol: Document 07/11/22 09:01 (Rec: 07/11/22 09:08 [id number]) PT Summary Assessment and Plan Potential Rehabilitation Potential Excellent Summary Progress Towards Goals Progressing Toward Goals,Safe For Discharge Assessment Summary Pt agreeable to PT. Reviewed any final questions he has for PT at this juncture. Pt anticipating discharge home today with spouse assist. His goal today was to ambulate further. He was able to ambulate ~200' without physical support of PT. His pain had increased in seated position immediately after ambulating but subsided with rest. Pain medications were provided ~30 min prior to PT per nsng. At this time, Pt is meeting criteria for d/c home with assist. Goals Bed Mobility Goal Independent Transfer Goal Independent,Front Wheeled Walker Gait Goal Independent,Front Wheel Walker Gait Distance 200 Other Goals up/down 1 step using FWW SBA Days to Meet Goals 5 Frequency of Treatment Frequency Of Treatment Twice a Day Treatment Plan Physical Therapy Treatment Plan Bed Mobility Training,Transfer Training,Gait Training, Therapeutic Exercise,Balance Retraining,Post Op Education, Discharge Planning,Hot or Cold Pack,Neuromuscular Re-ed, Coordination Retraining,Manual Therapy Other Recommendations and Next Treatment PT to revisit Pt this PM if he Focus has not discharged to review any final needs that may arise . Precautions Lumbar Precautions Log Roll,No Twisting,Limit Bending,Lifting Restriction of 10 lbs,Gait Belt above Incisional Area Recommendations To Nursing Amount of Assist Needed Independent Discharge Recommendations PT Discharge Recommendations Home with Assistance Equipment Needed for Home Before FWW Discharge Transportation Needs at Discharge Private Vehicle,Wheelchair/ Cabulance
--- NOTE | 2022-07-11 09:33 | PM.DS.1 ---
History of Present Illness History of Present Illness Date Patient Seen: 07/11/22 Time Patient Seen: 09:34 Chief complaint: TLIF Narrative: Postop L3-4 L4-[address] Barajas . Improved pain control today. Has been getting [place], oxycodone and Dilaudid. Dilaudid seems to help the most. Feeling better sitting up at the bedside table. Feels ready to go home today. Ambulated with therapy. And voided. Discharge Providers Provider Date of admission: 07/09/22 06:24 Discharge Date: 07/11/22 Primary care physician: Noemi Magallanes PA-C Consults: 07/09/22 13:45 Consult to Occupational Therapy Evaluate & Treat Comment: Physician Instructions: Evaluate and treat Consult to Physical Therapy Evaluate & Treat Comment: Physician Instructions: Evaluate and Treat Discharge provider: Sara Guajardo MD Summary Hospital Course Discharge Diagnosis: Spondylolisthesis, spondylosis lumbar Hospital Course: Patient was admitted to the acute care unit after surgery. He was managed on IV and p.o. pain medication. He worked with physical therapy. Initially had persistent pain. Pain medications were modified and on date of discharge. Patient's pain was controlled with p.o. medications and he was ambulating and tolerating a p.o. diet. Status at Discharge Cognitive/behavioral status at discharge: oriented Functional status at discharge: uses cane/walker Overall status at discharge: patient is progressing back to baseline Time Spent with Patient Time spent: Less than 30 minutes Exam Vital Signs (past 8 hours): - 07/11/22 04:19 07/11/22 07:53 07/11/22 08:09 Temperature 99.2 F 97.5 F L Pulse Rate 84 94 H Respiratory Rate 16 16 Blood Pressure 128/75 128/70 Pulse Oximetry 94 96 Oxygen Delivery Method Room Air Oxygen Flow Rate 0 Oxygen Delivery Method Room Air Oxygen Flow Rate 0 Narrative Exam Narrative: Alert oriented male in no acute distress. Respiratory unlabored on room air Low back exam dressing clean dry and intact. Demonstrates dorsiflexion plantar flexion bilateral lower extremities. Brisk capillary refill Objective Labs Result Diagrams: 07/10/22 05:44 [facility] Medical History Cyst of left kidney Diabetes Easy bruisability Fatty liver HLD (hyperlipidemia) HTN (hypertension) Sciatica Spinal stenosis Surgical History H/O vasectomy History of lumbar spinal fusion (~1975) History of lumbar surgery (~1981) History of surgery (~1984) Social History household members: spouse Smoking Status: Former smoker alcohol intake: current Discharge Assessment & Plan Assessment and Plan Assessment: Stable postoperative appearance status post L3-L4 L4-L5 TLIF for spondylolisthesis, lumbar. Plan of Treatment: Routine postoperative care TLIF. Limit bending, lifting, twisting for 6 weeks. Keep dressing clean dry and intact. May change if saturated. Follow-up in 2 weeks with [facility] Discharge Plan Discharge Plan Patient Disposition: Home Discharge orders & Medications Prescriptions: New docusate sodium 100 mg Capsule 100 mg PO BID Qty: 30 0RF hydromorphone 2 mg Tablet 2 mg PO Q3H PRN (Reason: Pain, Severe (7-10)) Qty: 40 0RF hydroxyzine pamoate 25 mg Capsule 25 mg PO Q4HR PRN (Reason: Nausea And Vomiting) Qty: 30 0RF Continued ascorbic acid (vitamin C) [Vitamin C] 250 mg Tablet,Chewable 500 mg PO DAILY magnesium oxide 500 mg Tablet 500 mg PO DAILY hydrochlorothiazide 25 mg Tablet 25 mg PO DAILY lisinopril 40 mg Tablet 40 mg PO DAILY ezetimibe 10 mg Tablet 10 mg PO DAILY cholecalciferol (vitamin D3) [Vitamin D3] 125 mcg (5,000 unit) Tablet 125 mcg PO DAILY Discontinued hydrocodone-acetaminophen 7.5-325 mg Tablet 1 tab PO BID PRN (Reason: Pain) Follow up/Referrals: Noemi Magallanes PA-C [Primary Care Provider] - Lou Barajas MD [Physician] - (10-14 days for postoperative visit) Diet/Activity/Treatments Diet: Diet as Tolerated Other treatments: Medications: -OTC Tylenol 500 mg 1 tablet every 4 hours as needed for pain/fever. Max 6 tablets per day. -hydromorphone (Dilaudid) 2 mg take 1-2 tablets every 3 hours as needed for moderate-severe pain (narcotic pain medication). -As needed medications: -Ducolax and /or MiraLax as needed for constipation from narcotic pain medications. -Pepcid AC as needed for stomach upset. -Vistaril (hydroxyine) 25mg 1 tab every 4 hours as needed for spasms/pain/nausea. Dressing/Wound care: -Keep dressing in place until postoperative follow-up office visit. -Okay to shower. Keep wound out of direct water stream. Can use PressNSeal plastic wrap to protect from shower stream. No soaking or submerging until all the scabs fall off (approximately 6 weeks). -Please call the office if dressing becomes wet, soiled, or saturated. Activities: -Limit bending, lifting, twisting x6 weeks. No deep bending (more than 90 degrees) or twisting at the waist. No lifting > 20 pounds. -Walk frequently. -Weight-bearing as tolerated. Use front wheeled walker, and progress to cane when safe. -Continue with home exercises as directed by your physical therapist. -Ice your incision as needed for pain/inflammation/swelling. Protect your skin with a folded pillowcase. -Incentive Spirometer (breathing device from hospital): 5-10xs every hour while awake for the first 1-2 weeks. Follow-up: -Follow-up with your surgeon or PA in the office in 10-14 days after surgery. -Follow-up with your surgeon 6 weeks postoperatively. Call the office if you have chest pain, shortness of breath, significant swelling that will not resolve with elevating, fever over 101?, significantly worsening pain, or are concerned you might need to go to the Emergency Room. [facility]: [phone] Skin/Wound/Dressing Care Report to your healthcare provider any signs of infection, such as:: chills, fever, night sweats, unusual drainage and unusual redness Visit Report/Discharge Packet Instructions: DI for Transforaminal Lumbar Interbody Fusion Stand Alone Forms: Surgery Discharge Discharge Data Primary Care Provider: Noemi Magallanes VTE Deep Vein Thrombosis/Pulmonary Embolism Present on Admission: No
[2022-07-11] MEDS: OXYCODONE IR 5 MG TABLET 10 MG PO (09:50)
--- NOTE | 2022-07-11 10:11 | PC.NURSE ---
pt in a lot of pain after dressing up, walking with PT and going to the bathroom. medicated patient. educated pt on opiod meds. dc instructions given. all belongings returned to patient.
== END 2022-07-11 01:04 | disposition home or self-care (01) | DRG 455 ==
PROVIDERS: Admitting Provider Orthopaedic Surgery Orthopaedic Surgery of the Spine; PCP Physician Assistant; Referring Provider Orthopaedic Surgery Orthopaedic Surgery of the Spine; Visit Provider Orthopaedic Surgery Orthopaedic Surgery of the Spine
PROC: 0SG10AJ Fusion of 2 or more Lumbar Vertebral Joints with Interbody Fusion Device, Posterior Approach, Anterior Column, Open Approach (ICD-10-PCS; principal; 2022-07-09 07:45)
DX: M48.062 Spinal stenosis, lumbar region with neurogenic claudication (principal); M43.16 Spondylolisthesis, lumbar region; I10 Essential (primary) hypertension; E78.5 Hyperlipidemia, unspecified; Z20.822 Contact with and (suspected) exposure to COVID-19; Z87.891 Personal history of nicotine dependence
CPT/HCPCS: 36415; 72100; 76000; 82962; 85014; 85018; 87635; 97116; 97162; 97530; C9803; C9290; J0171; J0690; J1170; J1815; J2405; J3010; J3410